=== PATIENT | female | born 1985 | race Asian ===

== ENCOUNTER → 2024-10-14 | Outpatient (CLI) | payer SELFPAY ==
[2024-10-14 07:50] LABS: Mucous, Urine 0 SEEN /hpf (<or=2+)
[2024-10-14 09:10] LABS: Cholesterol 226 mg/dL (<=200); Color, Urine Yellow (Yellow); Creatinine, Serum 0.74 mg/dL (0.70-1.20); EST Glomerular Filtration Rate 105 (>60); Glucose 92 mg/dL (70-99); Glucose, Dipstick Normal (Normal); High Density Lipoprotein 50 mg/dL; Ketone-Dipstick Negative (Negative); Leukocyte Esterase-Dipstick Negative /ul (Negative); Low Density Lipoprotein Calc. 156 mg/dL; Nitrite-Dipstick Negative (Negative); Occult Blood-Urine Negative /ul (Negative); Phosphorus 2.6 mg/dL (2.7-4.5); Protein-Dipstick 15 mg/dl (Negative); Triglycerides 99 mg/dL; Urine Bilirubin Dipstick Negative (Negative); Urine Clarity Clear (Clear); Urine Urobilinogen Normal (Normal); Urine pH 6.5 (5.0 - 8.0); Very Low Density Lipoprotein 20 mg/dL (5-40); cholesterol:hdl ratio screen 4.49
[2024-10-14 09:21] LABS: Squamous Epithelial Cells - UA 10-25 SEEN /hpf (5-10)
[2024-10-14 09:22] LABS: Bacteria 2+ /hpf (None Seen); Red Blood Cells-Urine 0-5 SEEN /hpf (0-5); White Blood Cells 0-5 SEEN /hpf (0-5)
[2024-10-14 10:35] LABS: Hemoglobin A1c 4.7 % (<=5.6)
[2024-10-14 11:16] LABS: Microalbumin,Random Urine < 12.0 mg/L (NO RANGE EST.); Microalbumin:Creatinine Ratio UNABLE TO CALCULATE mg/g CRE
== END | disposition home or self-care (01) ==
DX: Z52.4 Kidney donor (principal); Z94.0 Kidney transplant status
CPT/HCPCS: 36415; 80061; 81001; 82043; 82565; 82570; 82947; 83036; 84100; 86900; 86901